=== PATIENT | male | born 1955 | race Caucasian/White ===

== ENCOUNTER 2017-12-15 06:22 | Emergency (ER) | payer BC ==
[~2017-12-15] VITALS: Ht 188 cm; Wt 113.0 kg
[~2017-12-15 06:22] MED LIST: CELE200C PO; CIAL10TA PO; CLAR10CA3 PO; CLIN300C5 PO; LIPI20TA PO; PRIL20TA2
[2017-12-15 06:25] VITALS: BP 158/93; PULSE 75; RESP 16; TEMP 97.7; O2SAT 99
[2017-12-15] MEDS ORDERED: CELE200C PO (06:39)
[2017-12-15] MEDS ORDERED: CIPR-9 PO (06:40)
[2017-12-15] MEDS ORDERED: DOXY1CAP74 PO (06:40)
[2017-12-15 06:41] VITALS: BP 156/90; PULSE 68; RESP 18; O2SAT 99
--- NOTE | 2017-12-15 07:41 | PD ---
HPI Chief Complaint: Skin Problem Time Seen by Provider: 07:43 Travel History International Travel<30 days: No Contact w/Intl Traveler<30days: No Traveled to known affect area: No History of Present Illness HPI 62 year old male presents to ER with a chief complaint of red raised rash to the medial aspect of both 5th digits onset one week ago. Patient had been working with lobsters and eating raw oysters before the rash began. Was seen at an urgent care and diagnosed with shingles and started on an antiviral which he finished. However, the rash persisted and he sent pictures of it to his primary in [place] who prescribed cipro and doxycycline. Presented to urgent care [facility] days ago and started on clindamycin, now the patient arrives here today for "recheck" and referral to Infectious Disease. out of town all: pcn/cephalexin pmhx:high chol, hay fever, PFSH Past Medical History Medical History: Denies Significant Hx Past Surgical History Other Surgery: Yes Social History Alcohol Use: Yes Tobacco Use: No Substance Use: No Allergies-Medications (Allergen,Severity, Reaction): Coded Allergies: Penicillins (Verified Allergy, Unknown, 12/15/17) cephalexin (Verified Allergy, Unknown, 12/15/17) Reported Meds & Prescriptions Reported Meds & Active Scripts Active Clindamycin (Clindamycin HCl) 300 Mg Cap 300 Mg PO Q6H 10 Days Reported Doxycycline 40 Mg Cap 100 Mg PO BID Cipro (Ciprofloxacin HCl) 500 Mg Tab 500 Mg PO BID Celebrex (Celecoxib) 200 Mg Cap 200 Mg PO DAILY Cialis (Tadalafil) 10 Mg Tab 10 Mg PO DAILY PRN Do not exceed 1 dose/day. Prilosec (Omeprazole Magnesium) 20 Mg Tab Lipitor (Atorvastatin Calcium) 20 Mg Tab 20 Mg PO HS Claritin (Loratadine) 10 Mg Cap 10 Mg PO DAILY Review of Systems Except as stated in HPI: all other systems reviewed are Neg General / Constitutional: No: Fever Eyes: No: Visual changes HENT: No: Headaches Cardiovascular: No: Chest Pain or Discomfort Respiratory: No: Shortness of Breath Gastrointestinal: No: Abdominal Pain Genitourinary: No: Dysuria Musculoskeletal: No: Pain Skin: Positive Other Neurologic: No: Weakness Psychiatric: No: Depression Endocrine: No: Polydipsia Hematologic/Lymphatic: No: Easy Bruising Physical Exam Narrative GENERAL: SKIN: Warm and dry. LATERAL ASPECT OF 5TH DIGIT BILATERALLY HAS MACULOPAPULAR LESIONS WITH SOME VESICLES WELL, NO CELLULITIC CHANGES, NO STREAKING NOTED HEAD: Atraumatic. Normocephalic. EYES: Pupils equal and round. No scleral icterus. No injection or drainage. ENT: No nasal bleeding or discharge. Mucous membranes pink and moist. NO THRUSH NECK: Trachea midline. No JVD. NO LAD CARDIOVASCULAR: Regular rate and rhythm. RESPIRATORY: No accessory muscle use. Clear to auscultation. Breath sounds equal bilaterally. GASTROINTESTINAL: Abdomen soft, non-tender, nondistended. MUSCULOSKELETAL: Extremities without clubbing, cyanosis, or edema. No obvious deformities. NEUROLOGICAL: Awake and alert. No obvious cranial nerve deficits. Motor grossly within normal limits. Five out of 5 muscle strength in the arms and legs. Normal speech. PSYCHIATRIC: Appropriate mood and affect; insight and judgment normal. Data Data Last Documented VS Vital Signs Date Time Temp Pulse Resp B/P (MAP) Pulse Ox O2 Delivery O2 Flow Rate FiO2 12/15/17 06:41 68 18 156/90 (112) 99 Room Air 12/15/17 06:25 97.7 Orders Orders Comprehensive Metabolic Panel (12/15/17 08:00) Complete Blood Count With Diff (12/15/17 09:09) Acyclovir Inj (Zovirax Inj) (12/15/17 09:15) Labs Laboratory Tests Test 12/15/17 08:02 White Blood Count 6.0 TH/MM3 Red Blood Count 4.44 MIL/MM3 Hemoglobin 15.1 GM/DL Hematocrit 43.0 % Mean Corpuscular Volume 96.9 FL Mean Corpuscular Hemoglobin 34.0 PG Mean Corpuscular Hemoglobin Concent 35.1 % Red Cell Distribution Width 13.1 % Platelet Count 152 TH/MM3 Mean Platelet Volume 9.6 FL Neutrophils (%) (Auto) 59.3 % Lymphocytes (%) (Auto) 21.0 % Monocytes (%) (Auto) 11.1 % Eosinophils (%) (Auto) 8.0 % Basophils (%) (Auto) 0.6 % Neutrophils # (Auto) 3.5 TH/MM3 Lymphocytes # (Auto) 1.2 TH/MM3 Monocytes # (Auto) 0.7 TH/MM3 Eosinophils # (Auto) 0.5 TH/MM3 Basophils # (Auto) 0.0 TH/MM3 CBC Comment DIFF FINAL Differential Comment Blood Urea Nitrogen 13 MG/DL Creatinine 1.07 MG/DL Random Glucose 130 MG/DL Total Protein 7.1 GM/DL Albumin 3.7 GM/DL Calcium Level 8.5 MG/DL Alkaline Phosphatase 70 U/L Aspartate Amino Transf (AST/SGOT) 39 U/L Alanine Aminotransferase (ALT/SGPT) 63 U/L Total Bilirubin 0.7 MG/DL Sodium Level 138 MEQ/L Potassium Level 3.9 MEQ/L Chloride Level 104 MEQ/L Carbon Dioxide Level 24.0 MEQ/L Anion Gap 10 MEQ/L Estimat Glomerular Filtration Rate 70 ML/MIN MDM Medical Decision Making Medical Screen Exam Complete: Yes Emergency Medical Condition: Yes Medical Record Reviewed: Yes Differential Diagnosis CELLULITIS V ZOSTER V VIBRIO INFECTION Narrative Course CBC WAS WNL, AND DOES NOT SHOW ANY EVIDENCE OF IMMUNOSUPPRESSION SUCH LEUKOPENIA.....KIDNEY FUNCTIONS WNL WELL. PATIENT GIVEN ACYCLOVIR IV AND WILL B D/C ON VALTREX AND REFERRAL TO ID Diagnosis Primary Impression: ZOSTER T1 DISTRIBUTION Referrals: Cinthia Bright MD FOR FURTHER EVALUATION AND CARE Patient Instructions: General Instructions, Shingles (ED) Scripts Valacyclovir (Valacyclovir) 1,000 Mg Tab 1000 MG PO TID for Mgmt Viral Infection for 15 Days, #45 TAB 1 Refill Prov: Brown Roman MD 12/15/17 Disposition: 01 DISCHARGE HOME Condition: Stable Brown Roman MD Dec 15, 2017 07:41
[2017-12-15 08:39] LABS: ALBUMIN 3.7 GM/DL (3.4-5.0); AST (GOT) 39 U/L (15-37); BLOOD UREA NITROGEN 13 MG/DL (7-18); CALCIUM 8.5 MG/DL (8.5-10.1); CHLORIDE 104 MEQ/L (98-107); CREATININE 1.07 MG/DL (0.60-1.30); GLOMERULAR FILTRATION RATE 70 ML/MIN (>89); GLUCOSE,RANDOM 130 MG/DL (74-106); SODIUM (NA) 138 MEQ/L (136-145)
[2017-12-15 08:43] LABS: ALKALINE PHOSPHATASE 70 U/L (45-117); ALT (GPT) 63 U/L (12-78); TOTAL BILIRUBIN ADULT 0.7 MG/DL (0.2-1.0); TOTAL PROTEIN 7.1 GM/DL (6.4-8.2)
[2017-12-15] MEDS ORDERED: ACYCLOVIR INJ 1,000 MG in SODIUM CHLORIDE 0.9% INJ 150 ML IV ONE (09:15)
[2017-12-15 10:24] LABS: AUTOMATED NEUTROPHIL # 3.5 TH/MM3 (1.8-7.7); BASOPHIL % 0.6 % (0.0-2.0); EOSINOPHIL # 0.5 TH/MM3 (0-0.4); HEMOGLOBIN 15.1 GM/DL (13.0-17.0); LYMPHOCYTE # 1.2 TH/MM3 (1.0-4.8); MEAN CELL VOLUME 96.9 FL (80.0-100.0); MEAN CORPUSCULAR HGB CONC 35.1 % (32.0-36.0); MEAN PLATELET VOLUME 9.6 FL (7.0-11.0); MONO % 11.1 % (0.0-8.0); MONOCYTE # 0.7 TH/MM3 (0-0.9); NEUT % 59.3 % (16.0-70.0); PLATELET COUNT 152 TH/MM3 (150-450); RED BLOOD COUNT 4.44 MIL/MM3 (4.50-5.90); RED CELL DISTRIBUTION WIDTH 13.1 % (11.6-17.2)
[2017-12-15] MEDS ORDERED: VALA1TAB PO (11:09)
[2017-12-15 11:21] VITALS: BP 132/73; PULSE 72; RESP 15; O2SAT 95
== END 2017-12-15 11:58 | disposition home or self-care (01) ==
LOC: NEPE 06:22
DX: B02.9 Zoster without complications (principal); Z88.0 Allergy status to penicillin; Z88.8 Allergy status to other drugs, medicaments and biological substances; Z79.899 Other long term (current) drug therapy
CPT/HCPCS: 80053; 85025; 96374; 99284; J0133